=== PATIENT | female | born 1945 | race Caucasian/White ===

== ENCOUNTER → 2023-08-24 09:58 | Outpatient (REF) | payer MEDICARE, BC, SELFPAY | LOC: MRI 3T 09:58 | PROVIDERS: ATTENDING PHYSICIAN Specialist; FAMILY PHYSICIAN Internal Medicine | DX: M51.36 Other intervertebral disc degeneration, lumbar region (principal); M54.17 Radiculopathy, lumbosacral region | CPT/HCPCS: 72148 ==

== ENCOUNTER → 2023-10-30 10:37 | Outpatient (REF) | payer MEDICARE, BC, SELFPAY ==
[2023-10-30 12:58] LABS: Hematocrit 37.8 % (37.0-47.0); Hemoglobin 12.6 g/dL (12.0-16.0); Mean Corp Hgb Conc. 33.3 g/dL (33.0-37.0); Mean Corpuscular Hgb 30.2 pg (27.0-31.0); Mean Corpuscular Volume 90.6 fL (81.0-99.0); Mean Platelet Volume 10.5 fL (7.4-10.4); Platelet Count 223 10^3/uL (130-400); Red Blood Cell Count 4.17 10^6/uL (4.20-5.40); Red Cell Dist. Width 13.2 % (11.5-14.5); White Blood Cell Count 4.7 10^3/uL (4.8-10.8)
[2023-10-30 13:18] LABS: ALT (SGPT) 21 U/L (0-35); AST (SGOT) 27 U/L (14-36); Albumin 4.4 g/dl (3.5-5.0); Alkaline Phosphatase 77 U/L (38-126); Blood Urea Nitrogen 15 mg/dl (7-17); Calcium 9.4 mg/dl (8.4-10.2); Carbon Dioxide 29 mmol/L (22-30); Chloride 101 mmol/L (98-107); Glucose 102 mg/dl (70-99); HDL Cholesterol 46 mg/dl; LDL Cholesterol, Calculated 70 mg/dl; Sodium 139 mmol/L (135-145); Total Bilirubin 0.4 mg/dl (0.2-1.3); Total Cholesterol 162 mg/dl (50-199); Total Protein 7.1 g/dl (6.3-8.2); Triglyceride 230 mg/dl (10-149); Very Low Density Lipoprotein 46 mg/dl (0-30); eGFR > 60.00
[2023-10-30 13:27] LABS: Potassium 4.1 mmol/L (3.5-5.1)
== END ==
LOC: HWLAB 10:37
PROVIDERS: ATTENDING PHYSICIAN Internal Medicine
DX: K22.0 Achalasia of cardia (principal); M85.80 Other specified disorders of bone density and structure, unspecified site; E78.00 Pure hypercholesterolemia, unspecified; K58.9 Irritable bowel syndrome, unspecified
CPT/HCPCS: 36415; 80053; 80061; 85027

== ENCOUNTER → 2024-01-20 09:35 | Outpatient (REF) | payer MEDICARE, BC, SELFPAY ==
[2024-01-20 11:26] LABS: % Basophils 0.7 % (0-2); % Eosinophils 1.5 % (0-6); % Immature Granulocytes 0.3 % (0-0.5); % Lymphocytes 32.9 % (20.5-51.1); % Monocytes 8.9 % (1.7-9.3); % Neutrophils 55.7 % (42.2-75.2); Absolute Eosinophils 0.1 10^3/uL (0-0.7); Absolute Monocytes 0.5 10^3/uL (0.1-0.6); Absolute Neutrophils 3.3 10^3/uL (1.4-6.5); Hematocrit 40.2 % (37.0-47.0); Hemoglobin 12.9 g/dL (12.0-16.0); Mean Corp Hgb Conc. 32.1 g/dL (33.0-37.0); Mean Corpuscular Hgb 29.2 pg (27.0-31.0); Mean Platelet Volume 10.1 fL (7.4-10.4); Nucleated Red Blood Cells % 0 %; Platelet Count 234 10^3/uL (130-400); Red Blood Cell Count 4.42 10^6/uL (4.20-5.40); Red Cell Dist. Width 12.9 % (11.5-14.5)
[2024-01-20 11:40] LABS: ALT (SGPT) 21 U/L (0-35); AST (SGOT) 27 U/L (14-36); Albumin 4.5 g/dl (3.5-5.0); Alkaline Phosphatase 78 U/L (38-126); Blood Urea Nitrogen 14 mg/dl (7-17); Calcium 9.3 mg/dl (8.4-10.2); Carbon Dioxide 30 mmol/L (22-30); Chloride 103 mmol/L (98-107); Glucose 105 mg/dl (70-99); Potassium 4.2 mmol/L (3.5-5.1); Sodium 141 mmol/L (135-145); Total Bilirubin 0.5 mg/dl (0.2-1.3); Total Protein 7.3 g/dl (6.3-8.2); eGFR > 60.00
== END ==
LOC: HWLAB 09:35
PROVIDERS: ATTENDING PHYSICIAN Internal Medicine
DX: R10.9 Unspecified abdominal pain (principal)
CPT/HCPCS: 36415; 80053; 85025

== ENCOUNTER → 2024-01-27 11:30 | Outpatient (REF) | payer MEDICARE, BC, SELFPAY | LOC: HWRAD 11:30 | PROVIDERS: ATTENDING PHYSICIAN Internal Medicine | DX: R10.9 Unspecified abdominal pain (principal) | CPT/HCPCS: 74177; Q9967 ==

== ENCOUNTER → 2024-04-08 07:22 | Outpatient (REF) | payer MEDICARE, BC, SELFPAY | LOC: HWWDC 07:22 | PROVIDERS: ATTENDING PHYSICIAN Internal Medicine | DX: Z12.31 Encounter for screening mammogram for malignant neoplasm of breast (principal) | CPT/HCPCS: 77063; 77067 ==

== ENCOUNTER → 2024-04-22 08:54 | Outpatient (REF) | payer MEDICARE, BC, SELFPAY | LOC: HWRAD 08:54 | PROVIDERS: ATTENDING PHYSICIAN Physician Assistant Medical; FAMILY PHYSICIAN Internal Medicine; OTHER PHYSICIAN Orthopaedic Surgery | DX: M54.50 Low back pain, unspecified (principal); M81.0 Age-related osteoporosis without current pathological fracture | CPT/HCPCS: 77080 ==

== ENCOUNTER 2025-02-02 18:11 | Emergency (ER) | payer MEDICARE, BC, SELFPAY ==
[2025-02-02 18:14] VITALS: BP 144/102
--- NOTE | 2025-02-02 19:49 | ED.SKININJ ---
HPI-Injury
General
Chief Complaint: BURN-MINOR
Source: patient
Exam Limitations: none
Time Seen by Provider: 02/02/25 19:39
Nursing documentation reviewed up to this point in time: agreed with
History of Present Illness-Injury
Initial Injury comments:
79 yo female w hx HLD, GERD, here for burn on right hand. States [place] in [place] on her stove, put a lid over it and eventually it burned out. No other injury.
Past History
Past History
ED Past Medical History: Asthma, GERD and Hypercholesterolemia
ED Past Surgical History: Appendectomy, Gynecological, Orthopedic and Tonsilectomy
Social History
Tobacco: Non-smoker
Alcohol: None
Personal:
Living: alone
Employment: Retired
Review of Systems
Review of Systems
Allergies reviewed?: Yes
All Other Systems: ROS reviewed and negative except as documented in HPI and ROS
Skin: Reports other (Burn right hand)
Phy Exam
Physical Exam
Physical Exam:
PHYSICAL EXAMINATION:
General: no apparent distress, not acutely ill
Neuro: alert and oriented.
Psychiatric: well kept. interactive and cooperative
Musculoskeletal: Moves with ease
Skin: Warm, pink. There is a first-degree burn over the dorsal aspect of the right index finger and the middle finger and CP joint and a small area of redness on the base of the thumb. No blisters.
Course
Orders/Labs/Results
Orders:
Orders
02/02/25 19:50
Ibuprofen [Motrin] 600 mg PO NOW STA
Vital Signs
Initial and Last Documented VS:
Initial Vital Signs
Temp Pulse Resp BP Pulse Ox
98.8 F 107 16 144/102 99
02/02/25 18:14 02/02/25 18:14 02/02/25 18:14 02/02/25 18:14 02/02/25 18:14
Last Documented Vital Signs
Temp Pulse Resp BP Pulse Ox
98.8 F 107 16 145/89 94
02/02/25 18:14 02/02/25 18:14 02/02/25 18:14 02/02/25 20:17 02/02/25 20:17
MDM/Problems Addressed
Differential Diagnosis Includes:
1st degree vs 2nd degree burn
MDM/Problems Addressed:
79 yo female w hx HLD, GERD, here for burn on right hand. States she [place] in [place] on her stove, put a lid over it and eventually it burned out. No other injury.
No blisters, 1st degree only. Good relief with cold pack applied.
Pt admits she is more emotionally upset about the incident that the actual burn. Her microwave is ruined, she lives in a condo, her 6 months ago, tearful.
cold pack applied, Ibuprofen given, no other intervention needed at this time
*Pulse Oximetry
SaO2: 99
Oxygen Mode of Delivery: Room air
Patient hypoxic: not evaluated
*Critical Care Note
Total Time (30-74mins, 75-104mins- exclusive of procedures): Not Applicable
ED Attending Note
-
Portions of this chart may have been created with voice recognition software.� Occasional wrong word or��sound alike� substitutions may have occurred due to the inherent limitations of voice recognition software.
Discharge Plan
Departure
Patient Disposition: Home (Routine Discharge)
Date of Disposition: 02/02/25
Time of Disposition: 19:56
Patient with high blood pressure during this ER visit?: Yes
Condition: Good
Discharge Problem:
First degree burn of back of right hand
Instructions: [facility] (DC)
Prescriptions:
No Action
simvastatin 20 MG tablet
40 mg PO QPM
esomeprazole magnesium [Nexium] 40 MG capsule,delayed release(DR/EC)
40 mg PO BID
montelukast 10 MG tablet
10 mg PO QPM
Referrals:
GracieGurpreet MD [Family Provider, Internal Medicine] - As needed
Activity Restrictions/Additional Instructions:
As we discussed, ibuprofen 600 mg, with food, every 6 hours as needed for pain for the next 2 days. Cold compress to the area for pain
Check your blood pressure at home when you feel more calm as I am sure it will come back down to normal.
Interventions
Interventions:
*Risk Screen - Suicide Last Done: 02/02/25 18:14
*General Assessment Last Done: 02/02/25 20:01
*Neglect/Abuse Screening Last Done: 02/02/25 18:14
*ED- Fall Risk Assessment Last Done: 02/02/25 20:01
*ED COVID-19 Vaccine History Last Done: 02/02/25 20:01
*Nursing Disposition Last Done: 02/02/25 20:20
ED-Skin Assessment Last Done: 02/02/25 20:01
Discharge Date and Time
Discharge Date/Time: 02/02/25 20:40
Print Language: ROMANSH
[2025-02-02] MEDS: MOTRIN 600 MG PO (19:56)
[2025-02-02 20:00] VITALS: BMI 33.2
[2025-02-02 20:17] VITALS: BP 145/89
== END 2025-02-02 20:40 | disposition home or self-care (01) ==
LOC: EMR 18:11
PROVIDERS: EMERGENCY PHYSICIAN Emergency Medicine; FAMILY PHYSICIAN Internal Medicine
DX: T23.161A Burn of first degree of back of right hand, initial encounter (principal); X08.8XXA Exposure to other specified smoke, fire and flames, initial encounter; E78.00 Pure hypercholesterolemia, unspecified; J45.909 Unspecified asthma, uncomplicated; Z90.49 Acquired absence of other specified parts of digestive tract
CPT/HCPCS: 99282

== ENCOUNTER → 2025-02-08 11:34 | Outpatient (REF) | payer MEDICARE, BC, SELFPAY ==
[2025-02-08 15:38] LABS: Hematocrit 39.5 % (37.0-47.0); Hemoglobin 13.1 g/dL (12.0-16.0); Mean Corp Hgb Conc. 33.2 g/dL (33.0-37.0); Mean Corpuscular Volume 90.0 fL (81.0-99.0); Platelet Count 243 10^3/uL (130-400); Red Cell Dist. Width 13.6 % (11.5-14.5)
[2025-02-08 15:41] LABS: ALT (SGPT) 33 U/L (0-35); AST (SGOT) 28 U/L (14-36); Albumin 4.6 g/dl (3.5-5.0); Alkaline Phosphatase 73 U/L (38-126); Blood Urea Nitrogen 16 mg/dl (7-17); Calcium 9.5 mg/dl (8.4-10.2); Carbon Dioxide 32 mmol/L (22-30); Chloride 103 mmol/L (98-107); Glucose 113 mg/dl (70-99); HDL Cholesterol 51 mg/dl; LDL Cholesterol, Calculated 89 mg/dl; Potassium 4.2 mmol/L (3.5-5.1); Sodium 141 mmol/L (135-145); Total Protein 7.4 g/dl (6.3-8.2); Very Low Density Lipoprotein 43 mg/dl (0-30); eGFR > 60.00
== END ==
LOC: HWLAB 11:34
PROVIDERS: ATTENDING PHYSICIAN Internal Medicine
DX: Z00.00 Encounter for general adult medical examination without abnormal findings (principal); M85.80 Other specified disorders of bone density and structure, unspecified site; E78.00 Pure hypercholesterolemia, unspecified; I70.0 Atherosclerosis of aorta; E66.9 Obesity, unspecified
CPT/HCPCS: 36415; 80053; 80061; 85027

== ENCOUNTER → 2025-04-09 10:17 | Outpatient (REF) | payer MEDICARE, BC, SELFPAY | LOC: HWWDC 10:17 | PROVIDERS: ATTENDING PHYSICIAN Internal Medicine | DX: Z12.31 Encounter for screening mammogram for malignant neoplasm of breast (principal) | CPT/HCPCS: 77063; 77067 ==

== ENCOUNTER 2025-05-31 09:57 | Emergency (ER) | payer MEDICARE, BC, SELFPAY ==
[2025-05-31 10:00] VITALS: BP 139/99
--- NOTE | 2025-05-31 11:13 | ED.GENMED ---
History of Present Illness
General
Chief Complaint: Musculo-Skeletal Complaint
Source: patient
Exam Limitations: none
Time Seen by Provider: 05/31/25 10:50
Nursing documentation reviewed up to this point in time: agreed with
History of Present Illness
History of Present Illness:
Patient is an 79-year-old female presents to the ER complaining of right rib pain. Patient leaned up against the washer with her right rib on Saturday 2 days ago and felt sudden pain in her right rib area underneath her breast. Since then she has
had pain with deep breath pain with movement and is not getting relief with Tylenol. She denies shortnesss of breath. She denies abdominal pain. She is not on blood thinners.
Past History
Past History
ED Past Medical History: Asthma, GERD and Hypercholesterolemia
ED Past Surgical History: Appendectomy, Gynecological, Orthopedic and Tonsilectomy
Social History
Tobacco: Non-smoker
Alcohol: None
Personal:
Living: alone
Employment: Retired
Phy Exam
General Physical Exam
General Presentation: no apparent distress
General age: appears stated age
General Skin: warm and dry
General Habitus: normal
General Mental: alert
General Hydration: appears well hydrated
Cardiovascular Exam
Cardiovascular Exam: regular rate/rhythm, no murmur and normal peripheral pulses
Pulmonary Exam
Pulmonary Exam: lungs clear, no respiratory distress and other (normal inspection to right rib region + point tenderness to right anterior rib under breast , no crepitus )
Gastrointestinal Exam
Gastrointestinal Exam: soft and other (no RUQ tenderness)
Neurological Exam
Neurological Exam: alert and oriented x3
Musculoskeletal Exam
Musculoskeletal Exam: full ROM
Skin Exam
Skin Exam: normal color and warm/dry
Psychiatric Exam
Psychiatric Exam: normal mood/affect
Course
Orders/Labs/Results
Orders:
Orders
05/31/25 11:13
Oxycodone [Roxicodone] 5 mg PO NOW STA
Ribs, Right 3 View W/PA Chest [CR Ribs-right 3 Vw W/pa Chest*] Urgent
Comment:
Reason For Exam: trauma
Vital Signs
Initial and Last Documented VS:
Initial Vital Signs
Temp Pulse Resp BP Pulse Ox
98.7 F 77 16 139/99 98
05/31/25 10:00 05/31/25 10:00 05/31/25 10:00 05/31/25 10:00 05/31/25 10:00
Last Documented Vital Signs
Temp Pulse Resp BP Pulse Ox
98.7 F 77 16 139/99 98
05/31/25 10:00 05/31/25 10:00 05/31/25 10:00 05/31/25 10:00 05/31/25 11:15
MDM/Problems Addressed
Differential Diagnosis Includes:
Not limited to chest wall contusion rib contusion versus fracture
MDM/Problems Addressed:
No acute findings on chest x-ray however possible nondisplaced fracture that is not visualized. Patient complained of a lot of pain and pain with deep breath. She was given a dose of oxycodone here which improved her symptoms will give only a
short course/(5 tablets )of medication to go home with as she feels that she does need something for discomfort since ibuprofen and Tylenol did not help at home.
Discussed the breathing exercises and close outpatient follow-up.
*Radiology
Radiology exam reviewed: radiology read reviewed
*Pulse Oximetry
SaO2: 98
Oxygen Mode of Delivery: Room air
Patient hypoxic: no
*Critical Care Note
Total Time (30-74mins, 75-104mins- exclusive of procedures): Not Applicable
ED Attending Note
-
Portions of this chart may have been created with voice recognition software.� Occasional wrong word or��sound alike� substitutions may have occurred due to the inherent limitations of voice recognition software.
Discharge Plan
Departure
Patient Disposition: Home (Routine Discharge)
Date of Disposition: 05/31/25
Time of Disposition: 12:57
Patient with high blood pressure during this ER visit?: Yes
Condition: Fair
Covid-19: Not Applicable
Discharge Problem:
Contusion of rib
Instructions: Rib fracture or bruised rib - ED (DC)
Prescriptions:
New
oxycodone 5 mg tablet
5 mg PO Q6H PRN (Reason: Pain) Qty: 5 0RF
No Action
simvastatin 20 MG tablet
40 mg PO QPM
esomeprazole magnesium [Nexium] 40 MG capsule,delayed release(DR/EC)
40 mg PO BID
montelukast 10 MG tablet
10 mg PO QPM
Referrals:
Gurpreet Bowman MD [Family Provider, Internal Medicine]
Activity Restrictions/Additional Instructions:
As discussed , do breathing exercises every hour. Please alternate between Tylenol and ibuprofen for discomfort however if needed a short course of narcotic pain medication was sent to your pharmacist. This medication is a narcotic no driving or
drinking alcohol while taking this medication. In addition will cause drowsiness. This medication may also cause constipation please be sure to take an [id number] laxative such as Senokot while taking this medicine. Return if any worsening
of symptoms. Follow-up with your family doctor in the next 2 days for reevaluation
Interventions
Interventions:
*Risk Screen - Suicide Last Done: 05/31/25 10:00
*General Assessment Last Done: 05/31/25 10:00
*Neglect/Abuse Screening Last Done: 05/31/25 10:00
*ED- Fall Risk Assessment Last Done: 05/31/25 11:06
*ED COVID-19 Vaccine History Last Done: 05/31/25 10:14
*ED Influenza Vaccine History Last Done: 05/31/25 10:14
ED-Musculoskeletal Assessment Last Done: 05/31/25 10:14
Discharge Date and Time
Print Language: AFGHAN
[2025-05-31] MEDS: ROXICODONE 5 MG PO (11:19)
== END 2025-05-31 13:10 | disposition home or self-care (01) ==
LOC: EMR 09:57
PROVIDERS: EMERGENCY PHYSICIAN Emergency Medicine; FAMILY PHYSICIAN Internal Medicine
DX: S20.211A Contusion of right front wall of thorax, initial encounter (principal); X58.XXXA Exposure to other specified factors, initial encounter; J45.909 Unspecified asthma, uncomplicated; K21.9 Gastro-esophageal reflux disease without esophagitis; E78.00 Pure hypercholesterolemia, unspecified; Z90.49 Acquired absence of other specified parts of digestive tract
CPT/HCPCS: 99283; 71101